=== PATIENT | male | born 1955 | race Hispanic/Latino ===

== ENCOUNTER 2018-04-02 03:04 | Inpatient (IN) | payer OTHER, MEDICARE ==
[~2018-04-02] VITALS: Ht 160 cm; Wt 55.0 kg
[2018-04-02 03:30] LABS: BILIRUBIN,URINE Small (NEGATIVE); COLOR,URINE Orange (YELLOW); GLUCOSE, URINE (UA) 250 mg/dL (NEGATIVE); KETONES,URINE Trace mg/dL (NEGATIVE); LEUKOCYTE ESTERASE ,URINE Small (NEGATIVE); NITRATE,URINE Negative (NEGATIVE); OCCULT BLOOD,URINE Large (NEGATIVE); PROTEIN,URINE POS 1+ (NEGATIVE)
[2018-04-02 03:39] LABS: APPEARANCE,URINE CLOUDY (CLEAR)
[2018-04-02 03:40] LABS: BACTERIA,URINE Few /HPF (None Seen); MUCUS,URINE Many LPF (None Seen); SQUAMOUS EPITHELIAL CELL,UR Rare /HPF (0-2)
[2018-04-02 05:38] LABS: BASOPHILS % (AUTO) 0.5 % (0.0-5.0); EOSINOPHILS % (AUTO) 1.3 % (0.0-8.0); HEMATOCRIT 41.1 % (42-54); LYMPHOCYTES % (AUTO) 21.5 % (21.0-51.0); MEAN CORPUSCULAR HEMOGLOBIN 30.8 pg (27.0-33.0); MEAN CORPUSCULAR HGB CONC 34.8 g/dL (32.0-36.0); MEAN CORPUSCULAR VOLUME 88.4 fL (79-99); MONOCYTES % (AUTO) 7.6 % (3.0-13.0); NEUTROPHILS % (AUTO) 69.1 % (40.0-77.0); NUCLEATED RED BLOOD CELLS 0.1 % (0.0-0.19); PLATELET COUNT (AUTO) 123 K/uL (130-400); RED BLOOD CELL COUNT(AUTO) 4.65 MIL/uL (4.50-6.20); RED CELL DISTRIBUTION WIDTH 13.8 % (11.0-15.5); WHITE BLOOD COUNT (AUTO) 6.3 K/uL (4.8-10.8)
[2018-04-02 05:55] LABS: CREATININE 0.8 mg/dL (0.5-1.5); POTASSIUM 3.2 mmol/L (3.5-5.1)
[2018-04-02] MEDS ORDERED: ACETAMINOPHEN 325 MG TAB ONE (06:01)
[2018-04-02] MEDS ORDERED: ONDANSETRON HCL 4 MG/2 ML VIAL ONE (07:42)
[2018-04-02] MEDS ORDERED: CEFTRIAXONE SODIUM 1 GM ONE ×2 (07:42→16:17)
[2018-04-02] MEDS ORDERED: SODIUM CHLORIDE 0.9% 50 ML IV ONE (07:43)
[2018-04-02] MEDS ORDERED: MORPHINE SULFATE 2 MG/ML 1ML SYG ONE (07:43)
[2018-04-02] MEDS ORDERED: ACETAMINOPHEN 325 MG TAB PO PRN (11:00)
[2018-04-02] MEDS ORDERED: TAMSULOSIN HCL 0.4 MG CAP.ER.24H PO SCH (12:45)
[2018-04-02] MEDS ORDERED: METOPROLOL TARTRATE 1 MG/ML 5ML VIAL IV PRN (13:00)
[2018-04-02] MEDS ORDERED: POTASSIUM CHLORIDE 20MEQ/100ML 100 ML IV PRN (13:00)
[2018-04-02] MEDS ORDERED: LIDOCAINE HCL-MPF 1% 2ML VIAL IVP PRN (13:00)
[2018-04-02] MEDS ORDERED: ONDANSETRON HCL MDV 20ML 2 MG/ML VIAL IVP PRN (13:00)
[2018-04-02] MEDS ORDERED: ZOLPIDEM TARTRATE 5 MG TAB PO PRN (13:00)
[2018-04-02] MEDS ORDERED: LACTULOSE 20 GM/30 ML UDCUP PO PRN (13:00)
[2018-04-02] MEDS ORDERED: POTASSIUM CHLORIDE 10% ELIXIR 20 MEQ/15 ML UDCUP PO PRN (13:00)
[2018-04-02] MEDS ORDERED: HYDROCODONE/ACETAMINOPHEN 5/325 MG TAB ONE (14:09)
[2018-04-02] MEDS ORDERED: TAMSULOSIN HCL 0.4 MG CAP.ER.24H ONE (16:16)
[2018-04-02] MEDS ORDERED: HYDROMORPHONE 1 MG/1 ML AMP ONE (16:17)
[2018-04-02 18:03] VITALS: BP 145/79
[2018-04-02] MEDS: INSULIN HUMULIN R 100 UNIT/ML 3ML SQ SCH ×2 (18:30→21:50)
[2018-04-02] MEDS: ALPRAZOLAM 0.25 MG TABLET PO PRN (18:46)
[2018-04-02] MEDS: SODIUM CHLORIDE 0.9% 1000ML 1,000 ML IV SCH ×2 (18:46→20:45)
[2018-04-02] MEDS: HYDROMORPHONE 1 MG/1 ML AMP IVP PRN (18:47)
--- NOTE | 2018-04-02 20:00 | NUR ---
CONSULT DR. VALLES HERE TO SEE/SPEAK TO PATIENT. DISCUSSED HIS OPTIONS OF CARE WITH HIM. PATIENT SEEMS UNDECIDED. DR. VALLES SAYS HE WILL SCHEDULE LEFT URETEROSCOPY WITH LASER LITHOTRIPSY AND LEFT URETERAL STENT FOR Sunday04/04/18 IN MORNING AND IN THE MEAN TIME THE PATIENT CAN THINK ABOUT [facility] HE DECIDES TO GO AHEAD WITH IT.
[2018-04-02 20:18] VITALS: BP 145/79
[2018-04-02] MEDS: FAMOTIDINE/PF 20 MG/2 ML VIAL IV SCH (21:44)
[2018-04-02 23:48] VITALS: BP 141/76
[2018-04-03 04:20] VITALS: BP 149/78
[2018-04-03 05:03] LABS: CREATININE 1.1 mg/dL (0.5-1.5); POTASSIUM 3.6 mmol/L (3.5-5.1)
[2018-04-03 05:05] LABS: BASOPHILS % (AUTO) 0.8 % (0.0-5.0); EOSINOPHILS % (AUTO) 3.8 % (0.0-8.0); HEMATOCRIT 37.6 % (42-54); LYMPHOCYTES % (AUTO) 40.9 % (21.0-51.0); MEAN CORPUSCULAR HEMOGLOBIN 30.9 pg (27.0-33.0); MEAN CORPUSCULAR HGB CONC 34.1 g/dL (32.0-36.0); MEAN CORPUSCULAR VOLUME 90.5 fL (79-99); MONOCYTES % (AUTO) 7.4 % (3.0-13.0); NEUTROPHILS % (AUTO) 47.1 % (40.0-77.0); PLATELET COUNT (AUTO) 126 K/uL (130-400); RED BLOOD CELL COUNT(AUTO) 4.15 MIL/uL (4.50-6.20); RED CELL DISTRIBUTION WIDTH 14.1 % (11.0-15.5); WHITE BLOOD COUNT (AUTO) 4.9 K/uL (4.8-10.8)
[2018-04-03] MEDS: CEFTRIAXONE SODIUM 1 GM IVP SCH (05:45)
[2018-04-03] MEDS: SODIUM CHLORIDE 0.9% 1000ML 1,000 ML IV SCH ×3 (05:45→20:45)
[2018-04-03] MEDS: POTASSIUM CHLORIDE 20 MEQ ERTAB PO PRN ×2 (05:56→10:47)
[2018-04-03] MEDS: INSULIN HUMULIN R 100 UNIT/ML 3ML SQ SCH ×4 (05:59→21:00)
--- NOTE | 2018-04-03 06:00 | NUR ---
NOTE PATIENT REPORTS NO PAIN THIS MORNING. I INQUIRIED ABOUT THE PROCEDURE DR. VALLES SPOKE TO HIM ABOUT TO BE DONE TOMORROW AM AND IF HE HAD DECIDED TO GO AHEAD WITH IT, BUT HE SAYS HE WANTS TODAY TO THINK IT OVER.
[2018-04-03 08:00] VITALS: BP 149/86
[2018-04-03] MEDS: ALPRAZOLAM 0.25 MG TABLET PO PRN ×2 (08:58→22:02)
[2018-04-03] MEDS: HYDROCODONE/ACETAMINOPHEN 5/325 MG TAB PO PRN (08:59)
[2018-04-03] MEDS: FAMOTIDINE/PF 20 MG/2 ML VIAL IV SCH ×2 (10:47→22:02)
[2018-04-03 11:00] VITALS: BP 149/84
--- NOTE | 2018-04-03 14:01 | NUR ---
DCP CM met with pt discussed dc plans. Pt is independent prior to admission, lives at home with son. Denies any equipments/services. Pt feels safe to go back home, still drives, son able to assist with transportation and needs as necessary. DC plan to home once stable. CM to cont to follow up. Addendum: 04/03/18 at 1402 by JESSE FERNANDEZ LVN CM Amended: Links added.
[2018-04-03] MEDS: NICOTINE 14 MG/ 24 HR PATCH TD SCH (14:58)
[2018-04-03 16:00] VITALS: BP 150/87
[2018-04-03 20:16] VITALS: BP 159/86
[2018-04-03] MEDS: INSULIN GLARGINE 100 UNITS/ML 10 ML VIAL SQ SCH (22:09)
[2018-04-04] VITALS (26 sets, daily range): BP systolic 98–175; BP diastolic 61–96
[2018-04-04 04:22] LABS: BASOPHILS % (AUTO) 0.7 % (0.0-5.0); EOSINOPHILS % (AUTO) 3.8 % (0.0-8.0); HEMATOCRIT 38.7 % (42-54); LYMPHOCYTES % (AUTO) 42.8 % (21.0-51.0); MEAN CORPUSCULAR HGB CONC 34.5 g/dL (32.0-36.0); MONOCYTES % (AUTO) 6.7 % (3.0-13.0); PLATELET COUNT (AUTO) 118 K/uL (130-400)
[2018-04-04 04:29] LABS: HEMOGLOBIN A1C 7.6 % (4.0-6.0)
[2018-04-04 04:43] LABS: CREATININE 0.8 mg/dL (0.5-1.5); MAGNESIUM 1.6 mg/dL (1.80-2.40); PHOSPHORUS 3.9 mg/dL (2.5-4.9); POTASSIUM 3.5 mmol/L (3.5-5.1)
[2018-04-04] MEDS: CEFTRIAXONE SODIUM 1 GM IVP SCH (04:51)
[2018-04-04] MEDS: SODIUM CHLORIDE 0.9% 1000ML 1,000 ML IV SCH ×4 (04:51→20:45)
[2018-04-04] MEDS: INSULIN HUMULIN R 100 UNIT/ML 3ML SQ SCH ×3 (06:08→16:30)
[2018-04-04] MEDS: NICOTINE 14 MG/ 24 HR PATCH TD SCH (08:50)
[2018-04-04] MEDS: FAMOTIDINE/PF 20 MG/2 ML VIAL IV SCH ×2 (08:50→20:29)
[2018-04-04] MEDS: HYDROMORPHONE 1 MG/1 ML AMP IVP PRN ×2 (08:52→20:26)
[2018-04-04] MEDS ORDERED: MAGNESIUM 2GM PREMIX 50ML 50 ML IV SCH (10:00)
--- NOTE | 2018-04-04 12:02 | NUR ---
patient transferred to OR for right stent placement
[2018-04-04] MEDS ORDERED: IOHEXOL-350 50ML VIAL IV ONE (13:01)
[2018-04-04] MEDS ORDERED: PROPOFOL 10 MG/ML 20ML VIAL IV ONE (13:17)
[2018-04-04] MEDS ORDERED: GLYCOPYRROLATE 1 MG/5 ML SYRINGE ONE (13:17)
[2018-04-04] MEDS ORDERED: ONDANSETRON HCL 4 MG/2 ML VIAL ONE (13:17)
[2018-04-04] MEDS ORDERED: DEXAMETHASONE SOD PHOSPHATE 10MG/ML 1ML VIAL ONE (13:17)
[2018-04-04] MEDS ORDERED: MIDAZOLAM HCL 1 MG/ML 2ML VIAL ONE (13:17)
[2018-04-04] MEDS ORDERED: ROCURONIUM 10MG/1ML SYR 10 MG/ML ML ONE (13:18)
[2018-04-04] MEDS ORDERED: FENTANYL CITRATE PF 50 MCG/1 ML 2ML VIAL ONE (13:18)
[2018-04-04] MEDS ORDERED: NEOSTIGMINE 5MG/5ML SYR IV ONE (13:18)
[2018-04-04] MEDS ORDERED: NALOXONE HCL 0.4 MG/1 ML ML ONE (14:16)
--- NOTE | 2018-04-04 15:00 | NUR ---
BACK FROM OR, S/P LEFT URETEROSCOPY WITH STENT PLACEMENT.
[2018-04-05 00:14] VITALS: BP 160/90
[2018-04-05] MEDS: INSULIN HUMULIN R 100 UNIT/ML 3ML SQ SCH ×3 (00:25→11:30)
[2018-04-05] MEDS: INSULIN GLARGINE 100 UNITS/ML 10 ML VIAL SQ SCH (00:27)
[2018-04-05] MEDS: ALPRAZOLAM 0.25 MG TABLET PO PRN (00:56)
[2018-04-05] MEDS: HYDROCODONE/ACETAMINOPHEN 5/325 MG TAB PO PRN ×2 (00:57→09:02)
[2018-04-05 04:00] VITALS: BP 157/88
[2018-04-05] MEDS: SODIUM CHLORIDE 0.9% 1000ML 1,000 ML IV SCH (04:45)
[2018-04-05 04:56] LABS: BASOPHILS % (AUTO) 0.3 % (0.0-5.0); HEMATOCRIT 41.8 % (42-54); LYMPHOCYTES % (AUTO) 12.8 % (21.0-51.0); MEAN CORPUSCULAR HEMOGLOBIN 30.7 pg (27.0-33.0); MEAN CORPUSCULAR HGB CONC 34.2 g/dL (32.0-36.0); MEAN CORPUSCULAR VOLUME 89.7 fL (79-99); MONOCYTES % (AUTO) 4.1 % (3.0-13.0); NEUTROPHILS % (AUTO) 82.8 % (40.0-77.0); PLATELET COUNT (AUTO) 140 K/uL (130-400); RED BLOOD CELL COUNT(AUTO) 4.66 MIL/uL (4.50-6.20); WHITE BLOOD COUNT (AUTO) 5.7 K/uL (4.8-10.8)
[2018-04-05 05:10] LABS: INR 0.99 (0.85-1.15); PARTIAL THROMBOPLASTIN TIME 28.2 SEC (26.3-35.5); PROTHROMBIN TIME 10.4 SEC (9.6-11.6)
[2018-04-05 05:19] LABS: CREATININE 1.1 mg/dL (0.5-1.5); MAGNESIUM 1.8 mg/dL (1.80-2.40); PHOSPHORUS 4.1 mg/dL (2.5-4.9); POTASSIUM 4.2 mmol/L (3.5-5.1)
[2018-04-05] MEDS: CEFTRIAXONE SODIUM 1 GM IVP SCH (06:21)
[2018-04-05 07:30] VITALS: BP 161/94
[2018-04-05] MEDS: FAMOTIDINE/PF 20 MG/2 ML VIAL IV SCH (08:54)
[2018-04-05] MEDS: NICOTINE 14 MG/ 24 HR PATCH TD SCH (08:54)
[2018-04-05 11:00] VITALS: BP 158/83
== END 2018-04-05 13:10 | disposition home or self-care (01) | DRG 661 ==
LOC: EDH 03:04 → EDHIP 09:12 → OBSVTOIN 09:12 → 4BH 17:35
PROVIDERS: ADMIT Internal Medicine; ATTEND Internal Medicine
PROC: 0T778DZ Dilation of Left Ureter with Intraluminal Device, Via Natural or Artificial Opening Endoscopic (ICD-10-PCS; principal; 2018-04-04 13:40)
PROC: BT171ZZ Fluoroscopy of Left Ureter using Low Osmolar Contrast (ICD-10-PCS; 2018-04-04 13:40)
DX: N13.6 Pyonephrosis (principal); E11.9 Type 2 diabetes mellitus without complications; I10 Essential (primary) hypertension; E78.5 Hyperlipidemia, unspecified; J44.9 Chronic obstructive pulmonary disease, unspecified; F17.200 Nicotine dependence, unspecified, uncomplicated; K44.9 Diaphragmatic hernia without obstruction or gangrene; N42.0 Calculus of prostate; Z79.4 Long term (current) use of insulin; Z96.649 Presence of unspecified artificial hip joint; Z88.0 Allergy status to penicillin; Z71.6 Tobacco abuse counseling
CPT/HCPCS: 36415; 74176; 76000; 80048; 80061; 81001; 82948; 83036; 83735; 84100; 85025; 85610; 85730; 87088; A4354; C1758; C1769; C1894; C2617; G0378; J0696; J1100; J1170; J1815; J2250; J2310; J2405; J2704; J2710; J3010; J3475; J3480; J3490; J7030; Q9967

== ENCOUNTER → 2019-02-26 | Outpatient (CLI) | payer OTHER, MEDICARE | END | disposition home or self-care (01) | LOC: SHCH 14:16 | PROVIDERS: ATTEND Internal Medicine Cardiovascular Disease | DX: I10 Essential (primary) hypertension (principal) | CPT/HCPCS: 93306 ==

== ENCOUNTER → 2019-03-06 | Outpatient (CLI) | payer OTHER, MEDICARE ==
[2019-03-06] MEDS: REGADENOSON 0.4 MG/5 ML PF SYG IVP SCH (13:04)
== END | disposition home or self-care (01) ==
LOC: SHCH 07:59
PROVIDERS: ATTEND Internal Medicine Cardiovascular Disease
DX: I21.19 ST elevation (STEMI) myocardial infarction involving other coronary artery of inferior wall (principal)
CPT/HCPCS: 78452; 93017; 96374; A9500 ×2; J2785